=== PATIENT | female | born 1990 | race American Indian/Alaskan Native ===

== ENCOUNTER 2020-08-29 08:46 | Outpatient (CLI) | payer OTHER ==
[2020-08-29 09:24] VITALS: BP 129/63
[2020-08-29] MEDS ORDERED: LACTATED RINGERS 500 ML IV ONE (10:09)
== END 2020-08-29 10:26 | disposition home or self-care (01) ==
LOC: TRG 08:46 → APU 08:50 → TRG 10:26
PROVIDERS: ATTEND Obstetrics & Gynecology
DX: O26.892 Other specified pregnancy related conditions, second trimester (principal); R20.0 Anesthesia of skin; Z3A.20 20 weeks gestation of pregnancy
CPT/HCPCS: 59025; 82962

== ENCOUNTER 2020-12-12 16:34 | Outpatient (CLI) | payer OTHER ==
[2020-12-12] MEDS ORDERED: LACTATED RINGERS 1,000 ML ONE (17:13)
[2020-12-12] MEDS ORDERED: LACTATED RINGERS 1,000 ML IV ONE ×2 (17:20→19:48)
[2020-12-12 18:01] LABS: Amphetamine Screen,Urine Negative; Benzodiazepines Screen,Urine Negative; Cannabinoid Screen,Urine Negative; Cocaine Screen,Urine Negative; Methadone Screen,Urine Negative; Opiate Screen,Urine Negative
[2020-12-12 18:02] LABS: Bacteria,Urine 1+ /HPF (Negative); Bilirubin,Urine NEG (Negative); Blood,Urine NEG (Negative); Color,Urine Yellow (Yellow); Protein,Urine <15 mg/dL mg/dL (Negative)
--- NOTE | 2020-12-12 18:42 | Ultrasound Report ---
ULTRASOUND OBSTETRIC LIMITED ULTRASOUND BIOPHYSICAL PROFILE INDICATION / CLINICAL INFORMATION: MISTY, check placenta. Clinical Gestational Age (GA): 35.1 weeks.days COMPARISON: None available. FINDINGS: BREATHING MOVEMENT = 2 GROSS BODY MOVEMENT = 2 TONE = 2 QUALITATIVE AMNIOTIC FLUID VOLUME = 2 TOTAL BIOPHYSICAL SCORE = 8/8 HEART RATE (beats per minute): 130-141 AMNIOTIC FLUID INDEX (cm) = 13.5 (normal = 7-24 cm) PRESENTATION: Cephalic. ADDITIONAL FINDINGS: Fundal/left lateral placenta. Grade 1 appearance. IMPRESSION: 1. Biophysical Score = 8/8 2. Additional findings as above. Signer Name: Jono Villavicencio MD Signed: 12/12/2020 6:37 PM Workstation Name: [id number]
[2020-12-12] MEDS ORDERED: TERBUTALINE 1 MG/1 ML INJ ONE (19:35)
[2020-12-12] MEDS ORDERED: TERBUTALINE 1 MG/1 ML INJ SUB-Q ONE (19:47)
[2020-12-12 20:16] VITALS: BP 109/55
[2020-12-12] MEDS ORDERED: BETAMET ACET/BETAMET NA PH 6 MG/ML INJ 5 ML MDV IM SCH (21:00)
== END 2020-12-12 21:29 | disposition home or self-care (01) ==
LOC: TRG 16:34 → APU 16:35 → TRG 21:29
PROVIDERS: ATTEND Obstetrics & Gynecology
DX: O26.893 Other specified pregnancy related conditions, third trimester (principal); R10.2 Pelvic and perineal pain; O47.03 False labor before 37 completed weeks of gestation, third trimester; O24.419 Gestational diabetes mellitus in pregnancy, unspecified control; O99.513 Diseases of the respiratory system complicating pregnancy, third trimester; J45.909 Unspecified asthma, uncomplicated; Z3A.35 35 weeks gestation of pregnancy
CPT/HCPCS: 59025; 76815; 76819; 80307; 81001; 82962; 96360; 96361; 96372; J0702; J3105; J7120

== ENCOUNTER 2020-12-13 19:03 | Outpatient (CLI) | payer OTHER ==
[2020-12-13 19:35] VITALS: BP 130/66
[2020-12-13] MEDS ORDERED: BETAMET ACET/BETAMET NA PH 6 MG/ML INJ 5 ML MDV IM ONE (19:35)
== END 2020-12-13 20:07 | disposition home or self-care (01) ==
LOC: TRG 19:03 → APU 19:04 → TRG 20:07
PROVIDERS: ATTEND Obstetrics & Gynecology
DX: O26.893 Other specified pregnancy related conditions, third trimester (principal); R10.2 Pelvic and perineal pain; O47.03 False labor before 37 completed weeks of gestation, third trimester; O24.313 Unspecified pre-existing diabetes mellitus in pregnancy, third trimester; O99.343 Other mental disorders complicating pregnancy, third trimester; F41.9 Anxiety disorder, unspecified; O99.513 Diseases of the respiratory system complicating pregnancy, third trimester; J45.909 Unspecified asthma, uncomplicated; Z3A.35 35 weeks gestation of pregnancy
CPT/HCPCS: 59025; 96372; J0702

== ENCOUNTER 2020-12-23 10:24 | Inpatient (IN) | payer OTHER ==
[2020-12-23] MEDS ORDERED: LACTATED RINGERS 1,000 ML ONE (11:33)
[2020-12-23] MEDS ORDERED: OXYTOCIN DRIP 30,000 MILLIUNITS/500 ML BAG IV ONE (11:33)
[2020-12-23] MEDS ORDERED: ePHEDrine SULFATE 50 MG/1 ML INJ IV PRN ×2 (11:43→14:00)
[2020-12-23] MEDS ORDERED: ACETAMINOPHEN 325 MG TAB PO PRN (11:43)
[2020-12-23] MEDS ORDERED: TERBUTALINE 1 MG/1 ML INJ SUB-Q PRN (11:43)
[2020-12-23] MEDS ORDERED: LIDOCAINE (2%) 20 MG/1 ML VIAL 20 ML MDV INFILTRATI ONE (11:43)
[2020-12-23] MEDS ORDERED: LACTATED RINGERS 1,000 ML IV SCH (12:00)
[2020-12-23] MEDS ORDERED: OXYTOCIN DRIP 30 UNITS/500 ML BAG IV SCH ×2 (12:00)
[2020-12-23] MEDS ORDERED: BUTORPHANOL 2 MG/1 ML INJ IV PRN (12:00)
[2020-12-23 12:38] LABS: Hematocrit 28.6 % (30.3-42.9); Hemoglobin 9.5 gm/dl (10.1-14.3); Mean Corpuscular HGB Conc 33 % (30-34); Mean Corpuscular Volume 76 fl (79-97); Platelet Count 243 K/mm3 (140-440); Red Blood Count 3.77 M/mm3 (3.65-5.03); Red Cell Distribution Width 16.3 % (13.2-15.2)
[2020-12-23 12:53] LABS: Alanine Aminotransferase 5 units/L (7-56); Uric Acid 4.1 mg/dL (3.5-7.6)
[2020-12-23 13:13] LABS: Bilirubin,Urine NEG (Negative); Blood,Urine NEG (Negative); Color,Urine Yellow (Yellow); Mucus,Urine FEW /HPF; Protein,Urine <15 mg/dL mg/dL (Negative); Urobilinogen,Urine < 2.0 mg/dL (<2.0)
--- NOTE | 2020-12-23 13:48 | History and Physical Report ---
History of Present Illness Date of examination: 12/23/20 Date of admission: 12/23/20 10:24 Chief complaint: Presents for induction of labor from [facility] per recommendation of Dr. Rodriguez due to Gestational HTN with KIMBALL at 36 5/7 Weeks. Also has poorly controlled GDM A2, and suspected LGA. History of present illness: Early entry to care, course complicated by PreGestational Diabetes (Glyburide); Large Breast Mass (Breast Specialist); Depression (Wellbutrin); Maternal Obesity; Asthma; and Vitamin D Deficiency. 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/uterine surgery (Coplo) MANAGER PEOPLE History: abnormal PAP smear, chlamydia, gonorrhea, herpes Family/Genetic History: diabetes, heart disease, cancer Social history: no significant social history, single - Obstetrical History Expected Date of Delivery: 01/15/21 Actual Gestation: 36 Week(s) 5 Day(s) : 5 Para: 3 Hx # Term Pregnancies: 3 Induced : 1 Number of Living Children: 3 #2 Infant Gender: Female year: 2,[birth year] Birthweight: 37.648 kg Method of Delivery: Vaginal Complications: none #1 Infant Gender: Female year: 2,006 Birthweight: 3.487 kg Method of Delivery: Vaginal #3 Gender: Male year: 2,[birth year] Birthweight: 3.629 kg Method of Delivery: Vaginal Complications: none Medications and Allergies Allergies Allergy/AdvReac Type Severity Reaction Status Date / Time sulfamethoxazole Allergy Rash Verified 10/23/15 15:25 [From Bactrim] Home Medications Medication Instructions Recorded Confirmed Last Taken Type Vit-Fe Fumar-FA [ 1 tab PO QDAY #90 tablet 04/30/15 12/23/15 2 Days Ago Rx Vitamin] ~12/21/15 1 tab Active Meds: Active Medications Acetaminophen (Acetaminophen 500 Mg Tab) 1,000 mg PO Q4HR PRN PRN Reason: Pain, Mild (1-3) Butorphanol Tartrate (Butorphanol 2 Mg/1 Ml Inj) 2 mg IV Q2H PRN PRN Reason: Pain , Severe (7-10) Ephedrine Sulfate (Ephedrine Sulfate 50 Mg/1 Ml Inj) 10 mg IV Q2M PRN PRN Reason: Hypotension Oxytocin/Sodium Chloride (Pitocin/Ns 30 Unit/500ml) 30 units in 500 mls @ 2 mls/hr IV TITR MICHAEL; Protocol Lactated Ringer's (Lactated Ringers) 1,000 mls @ 125 mls/hr IV DIRECT MICHAEL Oxytocin/Sodium Chloride (Pitocin/Ns 30 Unit/500ml) 30 units in 500 mls @ 4 mls/hr IV TITR MICHAEL; Protocol Stop: 12/26/20 11:59 Lidocaine (Lidocaine (2%) 20 Mg/1 Ml Vial 20 Ml Mdv) 20 ml INFILTRATI ONCE MICHAEL Stop: 12/24/20 13:59 Mineral Oil (Mineral Oil 30 Ml Oral Liqd) 30 ml PO QHS PRN PRN Reason: Constipation Naloxone HCl (Naloxone 0.4 Mg/1 Ml Inj) 0.1 mg IV Q2MIN PRN PRN Reason: Res Rate </= 8 or 02 SAT < 92% Ondansetron HCl (Ondansetron 4 Mg/2 Ml Inj) 4 mg IV Q8H PRN PRN Reason: Nausea And Vomiting Terbutaline Sulfate (Terbutaline 1 Mg/1 Ml Inj) 0.25 mg SUB-Q ONCE PRN PRN Reason: Hyperstimulation/Hypertonicity Stop: 12/24/20 11:42 Review of Systems All systems: negative Constitutional: chronic headaches Musculoskeletal: other (hand and wrist numbness and pain) - Vital Signs Vital signs: Vital Signs Pulse Pulse Ox 101 H 100 12/23/20 11:10 12/23/20 11:10 Temp Pulse Resp BP Pulse Ox 105 H 145/81 100 12/23/20 13:39 12/23/20 12:39 12/23/20 13:39 - Physical Exam Breasts: Positive: normal Cardiovascular: Regular rate Lungs: Positive: Clear to auscultation, Normal air movement Abdomen: Positive: normal appearance, soft, normal bowel sounds Genitourinary (Female): Positive: normal external genitalia, normal perenium Vagina: Positive: normal moisture Uterus: Positive: enlarged, normal contour Anus/Rectum: Positive: normal perianal skin - Obstetrical FHR: category 1 Uterine Contraction Monitor Mode: Internal Cervical Dilatation: 6 (moderate amount of clear fluid upon AROM at 1317) Cervical Effacement Percentage: 70 station: -2 Uterine Contraction Frequency (min): 1.5 Uterine Contraction Pattern: Regular Uterine Tone Measurement Phase: Resting Uterine Contraction Intensity: Moderate Results Result Diagrams: 12/23/20 11:45 12/23/20 11:45 Abnormal lab results 12/23/20 12/23/20 Range/Units 11:45 11:45 Hgb 9.5 L (10.1-14.3) gm/dl Hct 28.6 L (30.3-42.9) % MCV 76 L (79-97) fl MCH 25 L (28-32) pg RDW 16.3 H (13.2-15.2) % Creatinine 0.4 L (0.6-1.2) mg/dL ALT 5 L (7-56) units/L Lactate Dehydrogenase 222 H (91-180) units/L All other labs normal. Assessment and Plan A: IUP @ 36 5/7 Weeks Category I Tracing Gestational HTN KIMBALL Poorly Controlled Pregestational Diabetes Maternal Obesity Asymptomatic Anemia GBS Negative P: Admit to L&D Per Routine Orders Accuchecks q 4 hours PIH Labs Pitocin Induction AROM IUPC placed
[2020-12-23] MEDS ORDERED: LIDOCAINE (2%) 20 MG/1 ML VIAL 20 ML MDV INFILTRATI SCH (14:00)
[2020-12-23] MEDS ORDERED: diphenhydrAMINE 50 MG/ML VIAL IV PRN (14:00)
[2020-12-23] MEDS ORDERED: LACTATED RINGERS 250 ML IV SOLN IV ONE (14:00)
[2020-12-23] MEDS ORDERED: ONDANSETRON 4 MG/2 ML INJ IV PRN (14:00)
[2020-12-23] MEDS ORDERED: NalbUPHINE 10 MG/1 ML INJ IV PRN (14:00)
[2020-12-23] MEDS ORDERED: fentaNYL-BUPIV 2 MCG/ML-0.125% 200 MCG/100 ML BAG EPIDURAL SCH (14:00)
[2020-12-23] MEDS ORDERED: NALOXONE 0.4 MG/1 ML INJ IV PRN (14:00)
[2020-12-23] MEDS ORDERED: ACETAMINOPHEN 500 MG TAB PO PRN (14:00)
[2020-12-23] MEDS ORDERED: NALOXONE 2 MG/2 ML INJ IV PRN (14:00)
--- NOTE | 2020-12-23 14:29 | Anesthesia Consultation ---
Anesthesia Consult and Med Hx Date of service: 12/23/20 - Airway Anesthetic Teeth Evaluation: Good ROM Head & Neck: Adequate Mental/Hyoid Distance: Adequate Mallampati Class: Class III Intubation Access Assessment: Possibly Difficult - Pulmonary Exam CTA: Yes - Cardiac Exam Cardiac Exam: RRR - Pre-Operative Health Status ASA Pre-Surgery Classification: ASA3 Proposed Anesthetic Plan: Epidural - Pulmonary Hx Smoking: Yes Hx Asthma: No COPD: No Hx Pneumonia: No Hx Sleep Apnea: No - Cardiovascular System Hx Hypertension: No Hx Heart Attack/AMI: No Hx Angina: No - Central Nervous System Hx Seizures: No Hx Psychiatric Problems: Yes (anxiety) - Gastrointestinal Hx Gastroesophageal Reflux Disease: No - Endocrine Hx Renal Disease: No Hx End Stage Renal Disease: No Hx Insulin Dependent Diabetes: Yes (gestational) Hx Hypothyroidism: No Hx Hyperthyroidism: No - Hematic Hx Anemia: No Hx Sickle Cell Disease: No - Other Systems Hx Alcohol Use: No Hx Obesity: Yes
--- NOTE | 2020-12-23 14:30 | Progress Note ---
Labor Epidural - Labor Epidural Start Time: 14:10 Stop Time: 14:25 Performed by:: MARCEL PITT Procedure: Patient is requesting epidural for labor and pain. H&P, labs were reviewed. Patient IDed, H&P reviewed, all questions and concerns were answered, and consent was signed. Timeout was performed at bedside. Patient in sitting position. Sterile prep and drape was performed. 3ml of 1% lidocaine skin wheal at L[3]- L [4]. 18-gauge Tuohy epidural needle was advanced to loss of resistance with air technique 7cm. Negative CSF negative blood. Epidural catheter advanced to [12] centimeters. [negative] Aspiration [negative] test dose. Sterile dressing applied. Patient tolerated procedure.
[2020-12-23] MEDS ORDERED: MINERAL OIL 30 ML ORAL LIQD ONE (16:44)
[2020-12-23] MEDS ORDERED: SODIUM CHLORIDE 0.9% 1000 ML 1,000 ML ONE (17:25)
[2020-12-23] MEDS ORDERED: SODIUM CHLORIDE 0.9% 1000 ML 1,000 ML IV ONE (17:54)
[2020-12-23] MEDS ORDERED: WITCH HAZEL/ GLYCERIN PAD TP PRN (19:30)
[2020-12-23] MEDS ORDERED: PROMETHAZINE 25 MG TAB PO PRN (19:30)
[2020-12-23] MEDS ORDERED: LANOLIN/ZINC/DIMETHICONE (LANSINOH) 7 GM TP PRN (19:30)
--- NOTE | 2020-12-23 19:40 | Procedure Note ---
OB Delivery Note - Delivery Date of Delivery: 12/23/20 (190) Surgeon: CORNELIUS TREADWELL Estimated blood loss: 200cc - Vaginal Delivery presentation: vertex Delivery position: OA Intrapartum events: mult.variable deceleratio Delivery induction: oxytocin Delivery augmentation: rupture of membranes, pitocin Delivery monitor: internal FHT, internal uterine Route of delivery: Delivery placenta: spontaneous Delivery cord: 3 umbilical vessels Episiotomy: none Delivery laceration: none Anesthesia: epidural Delivery comments: of a live 8'10 male infant over a intact perineum under epidural anesthesia with Apgars of 8 and 9 at 1908 on 12/23/2020. Infant directly to maternal abd/chest, skin to skin contact. Spontaneous delivery of placenta complete and intact with [place] side presenting at 1914. Fundus is firm and midline located 4 below the U. Lochia is scant. Delayed cord clamping and cutting; Cord cut by the Father of the Baby. Placenta to pathology. - Infant A at 1 minute: 8 at 5 minutes: 9 Infant Gender: Male (8'10)
[2020-12-23] MEDS ORDERED: MINERAL OIL 30 ML ORAL LIQD PO PRN (22:00)
[2020-12-23] MEDS: IBUPROFEN 600 MG TAB PO SCH (23:24)
[2020-12-24 09:14] LABS: Hematocrit 25.9 % (30.3-42.9); Hemoglobin 8.4 gm/dl (10.1-14.3)
--- NOTE | 2020-12-24 11:24 | Progress Note ---
Assessment and Plan A: S/P , GDMA2, CHTN Asymptomatic anemia p: Continue routine pp care Fe prescribed D/C home tomm if stable Subjective - Subjective Date of service: 12/24/20 Principal diagnosis: S/P Patient reports: appetite normal, voiding normally, pain well controlled, ambulating normally [place]: doing well, bottle feeding Objective - Vital Signs Latest vital signs: Vital Signs Temp Pulse Resp BP BP Pulse Ox 12/24/20 09:16 97.9 F 90 18 132/60 97 12/24/20 04:55 98.0 F 92 H 18 125/65 98 12/24/20 01:20 98.4 F 68 18 118/78 12/23/20 22:00 98.2 F 111 H 20 120/84 99 12/23/20 21:35 109 H 146/65 12/23/20 21:14 122 H 159/69 12/23/20 21:00 98 F 18 12/23/20 20:59 117 H 162/70 12/23/20 20:44 113 H 179/85 12/23/20 20:29 110 H 136/60 12/23/20 20:04 116 H 161/60 12/23/20 19:44 112 H 145/66 12/23/20 19:30 119 H 100 12/23/20 19:29 117 H 115/75 12/23/20 19:25 118 H 100 12/23/20 19:20 114 H 100 12/23/20 19:15 123 H 100 12/23/20 19:14 117 H 104/83 12/23/20 19:10 126 H 100 12/23/20 19:05 105 H 97 12/23/20 19:00 115 H 100 12/23/20 18:58 110 H 135/62 12/23/20 18:55 116 H 100 12/23/20 18:50 117 H 99 12/23/20 18:45 112 H 100 12/23/20 18:43 107 H 129/58 12/23/20 18:40 113 H 100 12/23/20 18:35 107 H 100 12/23/20 18:30 106 H 100 12/23/20 18:28 106 H 137/64 12/23/20 18:25 113 H 100 12/23/20 18:20 105 H 100 12/23/20 18:15 106 H 124/64 100 12/23/20 18:10 110 H 100 12/23/20 18:05 97 H 100 12/23/20 18:00 103 H 126/69 100 12/23/20 17:55 97 H 100 12/23/20 17:50 106 H 100 12/23/20 17:45 92 H 135/78 100 12/23/20 17:40 114 H 100 12/23/20 17:35 95 H 100 12/23/20 17:30 100 H 130/102 100 12/23/20 17:25 117 H 100 12/23/20 17:20 115 H 100 12/23/20 17:15 99 H 130/62 100 12/23/20 17:10 96 H 100 12/23/20 17:05 101 H 100 12/23/20 17:00 100 H 100 12/23/20 16:59 105 H 133/67 12/23/20 16:55 98 H 100 12/23/20 16:50 96 H 100 12/23/20 16:45 91 H 100 12/23/20 16:43 105 H 118/58 12/23/20 16:40 90 100 12/23/20 16:37 98 H 142/57 12/23/20 16:35 111 H 100 12/23/20 16:34 101 H 145/66 12/23/20 16:30 93 H 100 12/23/20 16:29 102 H 124/57 12/23/20 16:25 95 H 100 12/23/20 16:24 106 H 127/59 12/23/20 16:20 89 100 12/23/20 16:18 94 H 132/72 12/23/20 16:15 99 H 100 12/23/20 16:10 111 H 99 12/23/20 16:05 101 H 100 12/23/20 16:04 93 H 140/67 12/23/20 16:00 92 H 99 12/23/20 15:59 88 128/70 12/23/20 15:55 106 H 98 12/23/20 15:54 89 136/75 12/23/20 15:49 94 H 139/66 100 12/23/20 15:44 99 H 137/64 100 12/23/20 15:39 90 100 12/23/20 15:38 98 H 135/66 12/23/20 15:34 108 H 100 12/23/20 15:33 112 H 132/65 12/23/20 15:29 100 H 99 12/23/20 15:28 94 H 136/80 12/23/20 15:24 92 H 139/79 97 12/23/20 15:19 100 H 99 12/23/20 15:18 91 H 130/71 12/23/20 15:14 93 H 100 12/23/20 15:13 87 142/74 12/23/20 15:09 85 134/74 100 12/23/20 15:04 92 H 99 12/23/20 15:03 95 H 141/71 12/23/20 14:59 91 H 99 12/23/20 14:58 92 H 137/67 12/23/20 14:54 92 H 145/70 99 12/23/20 14:49 94 H 138/80 99 12/23/20 14:44 100 H 121/63 99 12/23/20 14:39 96 H 140/77 99 12/23/20 14:34 103 H 99 12/23/20 14:33 101 H 146/68 12/23/20 14:29 97 H 137/76 99 12/23/20 14:24 100 H 98 12/23/20 14:23 97 H 135/73 12/23/20 14:21 99 H 142/75 12/23/20 14:19 103 H 100 12/23/20 14:18 104 H 139/66 12/23/20 14:14 104 H 97 12/23/20 14:13 99 H 149/71 12/23/20 14:09 109 H 154/78 99 12/23/20 14:08 109 H 87 12/23/20 14:04 105 H 154/72 98 12/23/20 13:59 106 H 99 12/23/20 13:54 101 H 98 12/23/20 13:49 99 H 100 12/23/20 13:44 108 H 100 12/23/20 13:39 105 H 100 12/23/20 13:34 98 H 100 12/23/20 13:29 99 H 100 12/23/20 13:24 95 H 100 12/23/20 13:19 106 H 100 12/23/20 13:14 101 H 100 12/23/20 13:09 100 H 100 12/23/20 13:03 100 H 99 12/23/20 12:58 97 H 99 12/23/20 12:53 101 H 99 12/23/20 12:48 95 H 98 12/23/20 12:43 100 H 99 12/23/20 12:39 109 H 145/81 12/23/20 12:38 107 H 100 12/23/20 12:31 95 H 99 12/23/20 12:26 96 H 99 12/23/20 12:21 100 H 99 12/23/20 12:16 101 H 99 12/23/20 12:11 105 H 100 12/23/20 12:09 96 H 130/65 12/23/20 12:06 99 H 99 12/23/20 12:01 93 H 99 12/23/20 11:56 108 H 99 12/23/20 11:51 100 H 99 12/23/20 11:46 107 H 99 12/23/20 11:41 112 H 97 12/23/20 11:38 100 H 131/73 12/23/20 11:33 34 L 82 L 12/23/20 11:30 103 H 99 12/23/20 11:25 103 H 99 Intake and Output 12/23/20 12/24/20 12/24/20 22:59 06:59 14:59 Intake Total 48.299 600 Output Total 900 1400 Balance -851.701 -800 Intake: IV 48.299 PITOCin/NS 30 UNIT/500ML 48.299 30 units In 500 ml @ 4 mls/hr IV TITR MIHCAEL Rx#: [id number] Intake, Free Water 600 Output: Urine 900 1400 Void 900 1400 Other: Total, Output Amount 300 600 # Voids Void 1 Estimated Blood Loss 200 - Exam Breasts: Present: normal Abdomen: Present: normal appearance, soft, normal bowel sounds Vulva: both: normal Uterus: Present: normal, firm, fundal height below umbilicus Extremities: Present: normal - Labs Labs: Abnormal lab results 12/23/20 12/23/20 12/23/20 Range/Units 11:45 11:45 13:47 Hgb 9.5 L (10.1-14.3) gm/dl Hct 28.6 L (30.3-42.9) % MCV 76 L (79-97) fl MCH 25 L (28-32) pg RDW 16.3 H (13.2-15.2) % Creatinine 0.4 L (0.6-1.2) mg/dL POC Glucose 63 L (70-105) mg/dL ALT 5 L (7-56) units/L Lactate Dehydrogenase 222 H (91-180) units/L 12/23/20 12/23/20 12/24/20 Range/Units 18:15 23:32 08:40 Hgb 8.4 L (10.1-14.3) gm/dl Hct 25.9 L (30.3-42.9) % MCV (79-97) fl MCH (28-32) pg RDW (13.2-15.2) % Creatinine (0.6-1.2) mg/dL POC Glucose 60 L 139 H (70-105) mg/dL ALT (7-56) units/L Lactate Dehydrogenase (91-180) units/L 12/24/20 Range/Units 09:52 Hgb (10.1-14.3) gm/dl Hct (30.3-42.9) % MCV (79-97) fl MCH (28-32) pg RDW (13.2-15.2) % Creatinine (0.6-1.2) mg/dL POC Glucose 166 H (70-105) mg/dL ALT (7-56) units/L Lactate Dehydrogenase (91-180) units/L
--- NOTE | 2020-12-24 15:33 | Post Anesthesia Evaluation ---
- Post Anesthesia Evaluation Patient Participated: Yes Airway Patent: Yes Stable Respiratory Function: Yes Nausea/Vomiting: No Temp > 96.8F: Yes Pain Manageable: Yes Adequeate Hydration: Yes Anesthesia Complications: No Block Receding Appropriately: Yes Patient on Ventilator: No
[2020-12-24] MEDS: FERROUS SULFATE 325 MG TAB PO SCH (18:25)
[2020-12-24] MEDS: IBUPROFEN 600 MG TAB PO SCH (18:25)
[2020-12-25] MEDS: IBUPROFEN 600 MG TAB PO SCH ×2 (00:59→10:40)
[2020-12-25] MEDS: FERROUS SULFATE 325 MG TAB PO SCH ×2 (00:59→10:40)
--- NOTE | 2020-12-25 08:32 | Discharge Summary ---
Providers - Providers Date of Admission: 12/23/20 10:24 Date of discharge: 12/25/20 Attending physician: JOSEY TOBIAS Primary care physician: JOSEY TOBIAS Hospitalization Reason for admission: induction of labor, other (GDM,GHTN) Delivery: Episiotomy: none Laceration: none Other procedures: none complications: none Discharge diagnosis: IUP at term delivered baby: male Hospital course: Pt was admitted for an IOL r/t GHTN and GDMA2. She had a w/o complications. See H&P, delivery summary, and pp notes. Condition at discharge: Stable Disposition: DC-01 TO HOME OR SELFCARE Plan - Provider Discharge Summary Additional instructions: [] Smoking cessation referral if applicable(refer to patient education folder for contact #) [] Refer to [facility] Book[facility] Call your doctor immediately for: * Fever > 100.5 * Heavy vaginal bleeding ( >1 pad per hour) * Severe persistent headache * Shortness of breath * Reddened, hot, painful area to leg or breast * Drainage or odor from incision. * Keep incision clean and dry at all times and follow doctor's instructions regarding bathing/showering - Follow up plan Follow up: JOSEY TOBIAS MD [Primary Care Provider] - 7 Days
[2020-12-25 09:15] VITALS: BP 139/75
== END 2020-12-25 10:45 | disposition home or self-care (01) | DRG 775 ==
LOC: LD 10:24 → OB 21:47
PROVIDERS: ADMIT Obstetrics & Gynecology; ATTEND Obstetrics & Gynecology
PROC: 10E0XZZ Delivery of Products of Conception, External Approach (ICD-10-PCS; principal; 2020-12-23)
PROC: 3E033VJ Introduction of Other Hormone into Peripheral Vein, Percutaneous Approach (ICD-10-PCS; 2020-12-23)
PROC: 3E0R3BZ Introduction of Anesthetic Agent into Spinal Canal, Percutaneous Approach (ICD-10-PCS; 2020-12-23)
PROC: 00HU33Z Insertion of Infusion Device into Spinal Canal, Percutaneous Approach (ICD-10-PCS; 2020-12-23)
PROC: 10907ZC Drainage of Amniotic Fluid, Therapeutic from Products of Conception, Via Natural or Artificial Opening (ICD-10-PCS; 2020-12-23)
PROC: 10H07YZ Insertion of Other Device into Products of Conception, Via Natural or Artificial Opening (ICD-10-PCS; 2020-12-23)
DX: O76 Abnormality in fetal heart rate and rhythm complicating labor and delivery (principal); O24.429 Gestational diabetes mellitus in childbirth, unspecified control; O13.4 Gestational [pregnancy-induced] hypertension without significant proteinuria, complicating childbirth; O99.02 Anemia complicating childbirth; O99.334 Smoking (tobacco) complicating childbirth; O99.344 Other mental disorders complicating childbirth; F41.9 Anxiety disorder, unspecified; O99.52 Diseases of the respiratory system complicating childbirth; J45.909 Unspecified asthma, uncomplicated; Z20.822 Contact with and (suspected) exposure to COVID-19; O99.214 Obesity complicating childbirth; E66.9 Obesity, unspecified; Z3A.36 36 weeks gestation of pregnancy; Z37.0 Single live birth; Z37.9 Outcome of delivery, unspecified; Z82.49 Family history of ischemic heart disease and other diseases of the circulatory system; Z83.3 Family history of diabetes mellitus; Z80.9 Family history of malignant neoplasm, unspecified
CPT/HCPCS: 36415; 59025; 81001; 82565; 82962; 83615; 84450; 84460; 84550; 85014; 85018; 85027; 86850; 86900; 86901; 88307; 96360; 96361; 96365; 96366; G0378; J0595; J2590; J7120; U0003

== ENCOUNTER 2021-02-12 08:35 | Day surgery (SDC) | payer OTHER ==
--- NOTE | 2021-02-03 10:09 | History and Physical Report ---
History of Present Illness Date of examination: 02/12/21 History of present illness: 30yo desires sterilization. PT is for Lap BTL on 02/12. No other issues. BTL paper signed 10/15/20. 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: gonorrhea, herpes - Obstetrical History : 5 Para: 4 Hx # Term Pregnancies: 3 Number of Pregnancies: 1 Spontaneous Abortions: 1 Number of Living Children: 4 Medications and Allergies Allergies Allergy/AdvReac Type Severity Reaction Status Date / Time sulfamethoxazole Allergy Rash Verified 02/05/21 12:37 [From Bactrim] Home Medications Medication Instructions Recorded Confirmed Last Taken Type No Known Home Medications [No 02/05/21 02/05/21 Unknown History Reported Home Medications] Active Meds: Wellbutrin Review of Systems All systems: negative (except HPI) - Vital Signs Vital signs: see EMR charting - Physical Exam Cardiovascular: Regular rate, No murmurs Lungs: Positive: Clear to auscultation, Normal air movement Abdomen: Positive: normal appearance, soft. Negative: tenderness Vulva: both: normal Vagina: Positive: normal moisture. Negative: discharge Cervix: Negative: lesion, discharge Uterus: Positive: normal size, normal contour Adnexa: both: normal Results All other labs normal. Assessment and Plan - Patient Problems (1) Sterilization Status: Acute Plan to address problem: PT is for Lap BTL on 02/12. PT fully consented including the approximately 3 /1000 risk of BTL failure. She understands and accepts that. Patient fully consented for the surgery. Risks, benefits, and alternatives were all discussed with the patient including risk of bleeding, infection, and potential for injury. Patient understands and accepts these risks. Patient agrees to proceed with surgery. All questions were answered.
[~2021-02-12 08:35] MED LIST: ACETAMINOPHEN 500 MG TAB PO SCH; GABAPENTIN 300 MG CAP PO NR; LACTATED RINGERS 1,000 ML IV SCH; MIDAZOLAM 2 MG/2 ML INJ IV NR
[2021-02-12] MEDS ORDERED: oxyCODONE /ACETAMINOPHEN 5-325MG TAB PO PRN (09:07)
[2021-02-12] MEDS ORDERED: ONDANSETRON 4 MG/2 ML INJ IV PRN (09:07)
--- NOTE | 2021-02-12 09:07 | Anesthesia Consultation ---
Anesthesia Consult and Med Hx Date of service: 02/12/21 - Airway Anesthetic Teeth Evaluation: Good ROM Head & Neck: Adequate Mental/Hyoid Distance: Adequate Mallampati Class: Class II Intubation Access Assessment: Probably Good (Tongue jewlery present whic patients states is not removable. Advised of risk of damage to jewlery or tongue during airway management. Patient verbalized understanding.) - Pre-Operative Health Status ASA Pre-Surgery Classification: ASA2 Proposed Anesthetic Plan: General - Pulmonary Hx Respiratory Symptoms: No - Cardiovascular System Hx Hypertension: No - Central Nervous System CVA: No Hx Psychiatric Problems: Yes (anxiety) - Endocrine Hx Renal Disease: No Hx Liver Disease: No Hx Insulin Dependent Diabetes: No (gestational DM which has now resolved) Hx Thyroid Disease: No - Other Systems Hx Obesity: Yes (BMI 37) - Additional Comments Anesthesia Medical History Comments: No hx anesthetic complications.
--- NOTE | 2021-02-12 09:07 | Anesthesia Day of Surgery ---
Anesthesia Day of Surgery - Day of Surgery Patient Examined: Yes Patient H&P Reviewed: Yes Patient is NPO: Yes
[2021-02-12] MEDS ORDERED: BUPIVACAINE/PF (0.5%) 5 MG/1 ML 10 ML VIAL INFILTRATI ONE ×2 (11:03→12:15)
[2021-02-12] MEDS ORDERED: propofoL 200 MG/20 ML VIAL IV ONE (11:17)
[2021-02-12] MEDS ORDERED: fentaNYL 100 MCG/2 ML INJ ONE (11:17)
[2021-02-12] MEDS ORDERED: ONDANSETRON 4 MG/2 ML INJ ONE (11:26)
[2021-02-12] MEDS ORDERED: SUCCINYLCHOLINE CHLORIDE 200 MG/10 ML INJ MDV ONE (11:26)
[2021-02-12] MEDS ORDERED: LIDOCAINE PF 100 MG/5 ML (CARDIAC SYRINGE) IV ONE (11:26)
[2021-02-12] MEDS ORDERED: dexAMETHasone 20 MG/5 ML VIAL ONE (11:48)
[2021-02-12] MEDS ORDERED: KETOROLAC 30 MG/1 ML INJ ONE (11:49)
[2021-02-12] MEDS ORDERED: SODIUM CHLORIDE 0.9% IRR 1,500 ML BOTTLE IR ONE (12:15)
--- NOTE | 2021-02-12 12:24 | Post Operative Note ---
Date of procedure: 02/12/21 Pre-op diagnosis: Sterilization Post-op diagnosis: same Findings: Normal abdominal/pelvic survey. No anomalies noted. Normal uterus, tubes, ovaries Procedure: Indication: 30-year-old -1-1-4 who desires sterilization is here for her scheduled laparoscopic bilateral tubal ligation. Procedure: Laparoscopic bilateral tubal ligation. Patient taken the operating room and prepped and draped in usual fashion. Attention was first turned vaginally where single-tooth tenaculum was applied to the anterior lip of the cervix and an acorn uterine manipulator was placed. Attention was now turned abdominally where a 5 mm incision was made in the umbilicus. Veres needle then placed in the abdominal cavity. The abdomen was appropriately insufflated with CO2 gas. Veres needle removed and the 5 mm trocar was placed in abdominal cavity. Placement confirmed with the camera. Attention was turned suprapubically where an 8 mm incision was made and the 8 mm trocar was placed suprapubically in the midline under direct visualization. Trocar placed successfully and without difficulty. Attention was first turned to assess in the abdomen and pelvis. Findings noted above. Attention turned to the tubal ligation where a Filshie clip was applied to each tube. Each clip encompassed the full width of the tube on each side and good hemostasis was noted afterwards on both sides. At this point the abdomen was fully desuffla rakan. Trochars were removed. Trocar sites were closed with 4-0 Vicryl in a subcuticular fashion followed by Marcaine. The acorn uterine manipulator and single-tooth tenaculum were removed. Procedure concluded at this point. Patient tolerated the procedure well. All instrument lap counts were correct. Patient taken to the recovery room in stable condition. Anesthesia: GETA Surgeon: JOSEY TOBIAS Estimated blood loss: minimal Pathology: none Condition: stable Disposition: PACU
--- NOTE | 2021-02-12 12:28 | Short Stay Summary ---
Short Stay Documentation Date of service: 02/12/21 Narrative H&P: Patient presented on 02/12/2021 for her scheduled laparoscopic bilateral tubal ligation. Surgery was successful and uncomplicated. Please see operative report for details. Patient sent home in stable condition with follow-up instructed in 2 weeks. - History H&P: dictated - Allergies and Medications Current Medications: Allergies sulfamethoxazole [From Bactrim] Allergy (Verified 02/05/21 12:37) Rash Home Medications Medication Instructions Recorded Confirmed Last Taken Type Ibuprofen [Motrin 800 MG tab] 800 mg PO Q8HR PRN #30 tablet 02/12/21 Unknown Rx oxyCODONE /ACETAMINOPHEN [Percocet 1 tab PO Q6HR PRN #20 tablet 02/12/21 Unknown Rx 5/325 mg] Active Medications Acetaminophen (Acetaminophen 500 Mg Tab) 1,000 mg PO PREOP MICHAEL Stop: 02/12/21 20:00 Last Admin: 02/12/21 09:38 Dose: 1,000 mg Documented by: Gabapentin (Gabapentin 300 Mg Cap) 300 mg PO PREOP NR Stop: 02/12/21 20:00 Last Admin: 02/12/21 09:35 Dose: 300 mg Documented by: Hydromorphone HCl (Hydromorphone 1 Mg/1 Ml Inj) 0.5 mg IV Q10MIN PRN PRN Reason: Pain , Severe (7-10) Stop: 02/12/21 20:00 Lactated Ringer's (Lactated Ringers) 1,000 mls @ 100 mls/hr IV DIRECT MICHAEL Stop: 02/12/21 23:59 Last Admin: 02/12/21 09:50 Dose: 100 mls/hr Documented by: Midazolam HCl (Midazolam 2 Mg/2 Ml Inj) 2 mg IV PREOP NR Stop: 02/12/21 20:00 Last Admin: 02/12/21 09:52 Dose: 2 mg Documented by: Ondansetron HCl (Ondansetron 4 Mg/2 Ml Inj) 4 mg IV ONCE PRN PRN Reason: Nausea And Vomiting Stop: 02/12/21 20:00 Oxycodone/Acetaminophen (Oxycodone /Acetaminophen 5-325mg Tab) 1 tab PO ONCE PRN PRN Reason: Pain, Moderate (4-6) Stop: 02/12/21 20:00 - Disposition Condition at discharge: Stable Disposition: DC-01 TO HOME OR SELFCARE - Discharge Diagnoses (1) Sterilization Status: Acute Short Stay Discharge Plan Follow up with: JOSEY TOBIAS MD [Primary Care Provider] - 14 Days Prescriptions: Ibuprofen [Motrin 800 MG tab] 800 mg PO Q8HR PRN #30 tablet PRN Reason: Pain , Severe (7-10) oxyCODONE /ACETAMINOPHEN [Percocet 5/325 mg] 1 tab PO Q6HR PRN #20 tablet PRN Reason: Pain, Moderate (4-6)
[2021-02-12] MEDS: HYDROmorphone 1 MG/1 ML INJ IV PRN ×2 (12:44→12:55)
[2021-02-12] MEDS ORDERED: hydrALAZINE 20 MG/1 ML INJ IV ONE ×3 (13:08→14:00)
[2021-02-12] MEDS ORDERED: hydrALAZINE 20 MG/1 ML INJ ONE (13:09)
--- NOTE | 2021-02-12 14:48 | Post Anesthesia Evaluation ---
- Post Anesthesia Evaluation Patient Participated: Yes Airway Patent: Yes Stable Respiratory Function: Yes Nausea/Vomiting: No Temp > 96.8F: Yes Pain Manageable: Yes Adequeate Hydration: Yes Anesthesia Complications: No
[2021-02-12 19:02] VITALS: BP 145/80
== END 2021-02-12 15:00 | disposition home or self-care (01) ==
LOC: OR 08:35
PROVIDERS: ATTEND Obstetrics & Gynecology
DX: Z30.2 Encounter for sterilization (principal); G44.209 Tension-type headache, unspecified, not intractable; J45.909 Unspecified asthma, uncomplicated; E66.9 Obesity, unspecified; F32.9 Major depressive disorder, single episode, unspecified; F41.9 Anxiety disorder, unspecified; Z79.899 Other long term (current) drug therapy; Z88.8 Allergy status to other drugs, medicaments and biological substances; Z83.3 Family history of diabetes mellitus; Z98.890 Other specified postprocedural states
CPT/HCPCS: 58671; 81025; J0330; J0360; J1100; J1170; J1885; J2001; J2250; J2405; J2704; J3010; J7120

== ENCOUNTER 2022-06-15 19:56 | Emergency (ER) | payer OTHER ==
[2022-06-15 20:17] VITALS: BP 151/70
== END 2022-06-15 23:55 | disposition left against medical advice (07) ==
LOC: ED 19:56
DX: R10.9 Unspecified abdominal pain (principal); Z53.21 Procedure and treatment not carried out due to patient leaving prior to being seen by health care provider